=== PATIENT | male | born 1980 | race Caucasian/White ===

== ENCOUNTER 2021-03-03 17:18 | Emergency (ER) | payer OTHER ==
[~2021-03-03] VITALS: Ht 165.1 cm; Wt 83.0 kg
[2021-03-03] MEDS ORDERED: TRIC160 GT (17:32)
[2021-03-03] MEDS ORDERED: LISI10TA26 PO (17:32)
[2021-03-03 20:24] LABS: BASOPHILS % 1.1 % (0.0-2.0); EOSINOPHILS % 3.5 % (0.0-5.0); HEMATOCRIT. 45.5 % (42.0-52.0); HEMOGLOBIN. 15.9 g/dL (14.0-18.0); LYMPHOCYTES % 34.1 % (20.0-50.0); MEAN CORPUSCULAR HEMOGLOBIN 31.9 pg (28.0-32.0); MEAN PLATELET VOLUME 8.4 fl (7.4-10.4); MONOCYTES % 7.2 % (2.0-8.0); NEUTROPHILS % 54.1 % (40.0-76.0); PLATELET 356 x1000/uL (130-400); RED CELL DISTRIBUTION WIDTH 12.7 % (11.6-14.6)
[2021-03-03 20:26] LABS: CHLORIDE 106 mEq/L (98-107)
[2021-03-03 21:17] VITALS: BP 176/105
== END 2021-03-03 21:31 | disposition home or self-care (01) ==
LOC: ER 17:53
DX: I10 Essential (primary) hypertension (principal); R42 Dizziness and giddiness; E78.00 Pure hypercholesterolemia, unspecified; F12.10 Cannabis abuse, uncomplicated; F17.210 Nicotine dependence, cigarettes, uncomplicated
CPT/HCPCS: 36415; 80053; 85025; 93005; 99285